=== PATIENT | female | born 1980 | race Hispanic/Latino ===

== ENCOUNTER 2021-11-24 12:11 | Emergency (ER) | payer MEDICAID ==
[~2021-11-24] VITALS: Ht 165.1 cm; Wt 59.0 kg
[~2021-11-24 12:11] MED LIST: LEVO-70 PO
[2021-11-24] MEDS ORDERED: L.E.T. GEL 3ML SYG TP ONE (12:30)
[2021-11-24] MEDS ORDERED: TETANUS/DIPHTHERIA TOXOID [ADULT] 0.5 ML VIAL IM ONE (12:30)
[2021-11-24] MEDS ORDERED: ACETAMINOPHEN 325 MG/10.15ML UDCUP PO ONE (12:30)
[2021-11-24 13:49] VITALS: BP 108/63
== END 2021-11-24 14:37 | disposition home or self-care (01) ==
LOC: EDH 12:11
DX: S01.01XA Laceration without foreign body of scalp, initial encounter (principal); S16.1XXA Strain of muscle, fascia and tendon at neck level, initial encounter; W01.0XXA Fall on same level from slipping, tripping and stumbling without subsequent striking against object, initial encounter; Y93.89 Activity, other specified; Y92.89 Other specified places as the place of occurrence of the external cause; Y99.8 Other external cause status
CPT/HCPCS: 12002; 70450; 72125; 90471; 90714